=== PATIENT | female | born 1990 | race Caucasian/White ===

== ENCOUNTER 2020-08-21 16:01 | Outpatient (REF) | payer MEDICAID, SELFPAY | END 2020-08-21 16:02 | disposition home or self-care (01) | LOC: HO.LAB 16:01 | PROVIDERS: Visit Provider Internal Medicine | DX: Z20.828 Contact with and (suspected) exposure to other viral communicable diseases (principal) | CPT/HCPCS: C9803; U0003 ==

== ENCOUNTER 2020-09-04 13:53 | Emergency (ER) | payer MEDICAID, SELFPAY ==
[2020-09-04 14:32] VITALS: PULSE 98; RESP 12; TEMP 36.6; O2SAT 98; BMI 40.3
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
== END 2020-09-04 16:47 | disposition home or self-care (01) ==
PROVIDERS: Emergency Provider Emergency Medicine
DX: S61.211A Laceration without foreign body of left index finger without damage to nail, initial encounter (principal); W26.0XXA Contact with knife, initial encounter; Y93.9 Activity, unspecified; Y92.019 Unspecified place in single-family (private) house as the place of occurrence of the external cause; Y99.9 Unspecified external cause status
CPT/HCPCS: 90471; 90715; 99283; 99284

== ENCOUNTER 2023-09-22 11:25 | Emergency (ER) | payer OTHER, MEDICAID, SELFPAY ==
[2023-09-22 12:09] VITALS: BP 140/77; PULSE 86; RESP 20; TEMP 37.1; O2SAT 98; BMI 33.3
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
== END 2023-09-22 14:54 | disposition home or self-care (01) ==
PROVIDERS: Emergency Provider Emergency Medicine
DX: S13.4XXA Sprain of ligaments of cervical spine, initial encounter (principal); S09.90XA Unspecified injury of head, initial encounter; M54.2 Cervicalgia; R51.9 Headache, unspecified; V43.52XA Car driver injured in collision with other type car in traffic accident, initial encounter; Y93.9 Activity, unspecified; Y92.410 Unspecified street and highway as the place of occurrence of the external cause; Y99.9 Unspecified external cause status
CPT/HCPCS: 70450; 72125; 99283; 99284

== ENCOUNTER 2025-07-11 16:29 | Emergency (ER) | payer MEDICAID, SELFPAY ==
--- NOTE | ~2025-07-11 | XR_ITS ---
CLINICAL HISTORY: pain 4 view, chest and right ribs Comparison: None provided Findings: No fractures or dislocations. No acute airspace opacity. No pleural effusion or pneumothorax. Normal heart size. IMPRESSION: 1. No acute right rib fracture identified. 2. No acute cardiopulmonary process. This document has been electronically signed by: Lise Jay DO on 07/11/2025 19:56:35
[2025-07-11 18:55] VITALS: BP 117/56; PULSE 70; RESP 16; TEMP 36.6; O2SAT 100; BMI 31.4
--- NOTE | 2025-07-11 18:56 | ED_ITS ---
[facility] - General Adult General Chief complaint: Abdominal Pain Stated complaint: Fever Body Aches Time Seen by Provider: 07/11/25 18:48 Source: patient Mode of arrival: ambulatory Limitations: no limitations History of Present Illness ED Provider: Dr. Marmolejo [facility] narrative: 35-year-old female presented hospital today for right lower chest pain that is pleuritic in nature has been going on since . No traumatic injuries. No nausea vomiting diarrhea. No right upper quadrant pain. No history of cholecystitis in the past. Patient stated this worse when she takes a deep breath in and out. Related Data Previous Rx's ?Medication ?Instructions ?Recorded acetaminophen 500 mg tablet 500 mg PO Q6H PRN fever or pain 09/22/23 (Tylenol Extra Strength) #14 tabs cyclobenzaprine 5 mg tablet 5 mg PO Q8H PRN pain (scal e score 09/22/23 7-10) 5 days #14 tabs lidocaine 5 % topical patch 1 patch topical DAILY PRN pain #30 09/22/23 (Lidoderm) ea naproxen 500 mg tablet 500 mg PO BID PRN pain 10 da ys #20 09/22/23 tabs lidocaine 5 % topical patch 1 patch topical DAILY #15 ea 07/11/25 prednisone 20 mg tablet 20 mg PO DAILY 7 days #7 tab s 07/11/25 Allergies Allergy/AdvReac Type Severity Reaction Status Date / Time No Known Allergies Allergy Verified 07/11/25 18:58 Review of Systems Review of Systems: Pertinent review of systems as mentioned in HPI. All other system otherwise negative. [facility] Past Medical History Attestation statement: The following information was validated with the patient. [facility] Narrative: Medical history as mentioned in [facility] Social History Social History Advance Directives: No Advance Directives Information Provided: No Do you have a plan to hurt others: No Plan Physical Exam ED Exam Exam: General: Pleasant, no distress, interacting appropriately Head: Normacephalic, atraumatic ENT: oral mucosa moist, neck supple, no tracheal deviation Cardiovascular: regular rate, regular rhythm, no murmurs, rubbing, gallops, right side chest wall tenderness reproducible on exam. Respiratory: CTAB, no wheeze, rales, rhonchi Gastrointestinal: Soft, non distended, non tender, non guarding Neurological: Awake and alert, no facial droop noted Skin: Warm and dry Psychiatric: Appropriate mood and thoughts Vital Signs: Vital Signs - 24 hr 07/11/25 18:55 07/11/25 20:25 Temperature 98 F 98 F Pulse Rate 70 72 Respiratory Rate 16 18 Blood Pressure 117/56 L 118/60 Pulse Oximetry 100 99 Oxygen Delivery Method Room Air Room Air BMI result Body Mass Index 31.4 Course Course Course Narrative: Rapid medical examination performed in triage by Mag Garcia PA-C. Patient is a 35 year old assigned female at presenting to the emergency department with right sided rib pain. Detailed physical exam and review of systems are deferred to the public health sanitarian. Imaging ordered. Patient placed back in the waiting room pending room availability and results. Medical Decision Making Medical Decision Making [facility] Narrative: This is a 35-year-old female presented hospital today for a right-sided pleuritic chest pain. Patient is low risk for PE per PERC rule. I do not think patient has a PE. Patient is likely has costochondritis versus pleurisy. Patient's chest x-ray is clear. Patient does not appear to be in acute distress on evaluation. We will plan to give patient a dose of prednisone here, lidocaine patch, ibuprofen and Tylenol will be given to the patient. We will plan to prescribe patient some lidocaine patch and prednisone as well. Encouraged her to take Tylenol and ibuprofen [id number] for her pain. Work note will be provided. Differential Diagnosis Differential Diagnoses: The differential diagnosis associated with the presentation includes Costochondritis, pleurisy, pneumonia, cholecystitis Lab Data [facility] Lab Attestation statement: I reviewed the patient's lab results. Independent Interpretation I performed an independent interpretation of an: Plain X-Ray Radiology Impression Discussion of test interpretation with radiology: I have reviewed the radiologist's reading. Discharge Plan Discharge Clinical Impression: Acute costochondritis Patient Disposition: Home, Self-Care Instructions: Costochondritis (ED) Prescriptions: New prednisone 20 mg tablet 20 mg PO DAILY 7 Days Qty: 7 0RF lidocaine 5 % adhesive patch,medicated 1 patch topical DAILY Qty: 15 0RF Rx Instructions: leave on most painful area for up to 12 hrs No Action acetaminophen [Tylenol Extra Strength] 500 mg tablet 500 mg PO Q6H PRN (Reason: fever or pain) Qty: 14 0RF lidocaine [Lidoderm] 5 % adhesive patch,medicated 1 patch topical DAILY MDD remove after 12 hours PRN (Reason: pain) Qty: 30 0RF Rx Instructions: leave on most painful area for up to 12 hrs naproxen 500 mg tablet 500 mg PO BID PRN (Reason: pain) 10 Days Qty: 20 0RF cyclobenzaprine 5 mg tablet 5 mg PO Q8H PRN (Reason: pain (scale score 7-10)) 5 Days Qty: 14 0RF Stand Alone Forms: Work/School Release Interventions: LWBS Worksheet Last Done: 07/11/25 17:34 Print Language: Greenlandic
--- OUTSIDE RECORDS SUMMARY | 2025-07-11 19:25 | XMS_ITS | Clinical Summary ---
Author Organization [employer] Address [address] [place] [address] Care Team Providers Care At Risk Specialist Name Role Phone Unavailable Primary Care Provider Unavailabl e Allergies No known active allergies Medications naproxen (Naprosyn) 500 MG tablet TAKE 1 TABLET BY MOUTH TWICE DAILY FOR 10 DAYS NEEDED FOR PAIN 4 Active lidocaine (Lidoderm) 5 % patch APPLY 1 PATCH TOPICALLY TO SKIN, LEAVE ON FOR 12 HOURS AND OFF FOR 12 HOURS DIRECTED. LEAVE ON MOST PAINFUL AREA. 4 Active cyclobenzaprine (Flexeril) 5 MG tablet TAKE 1 TABLET BY MOUTH EVERY 8 HOURS NEEDED FOR PAIN (7 TO 10 ON PAIN SCALE) FOR 5 DAYS 4 Active Acetaminophen Extra Strength 500 MG tablet Take 1 tablet by mouth every 6 (six) hours if needed (pain or fever). 60 tablet 4 Active Active Problems Problem Noted Date Diagnosed Date Acute URI 10/26/2024 Strep throat 02/16/2024 Assessment & Plan (02/16/2024 1:48 PM EDT): -POCT positive for strep, negative flu and COVID -Centor score of 1 -prescription for pencillin V sent to pharmacy. Complete full course. Take medication with food and call the clinic with any adverse reactions -Counseled supportive measures including salt water gargles, cool drinks or ice/popsicles, humidifier, honey for sore throat, fluids, rest. -May alternate Motrin/Tylenol q4h as needed fever. -advised not to share cups or eating utensils, change tooth brush and bedding after 5 days of antibiotic treatment -work note provided to return on Friday -RTC if no improvement in 4 days, increased cough or SOB, fever, or severe headache. -ED precautions reviewed. Caries involving multiple surfaces of tooth 10/17 Periapical abscess without sinus 10/15/2022 Periodontal disease 10/15/2022 Dental calculus 10/15/2022 Vitamin D deficiency 01/16/2018 Social History Tobacco Use Types Packs/Day Years Used Date Smoking Tobacco: Every Day Cigarettes Passive Smoke Exposure: Never Smokeless Tobacco: Never Tobacco Cessation:Ready to Q uit: Not Asked; Counseling Given: Not Answered Comments Unknown Sex and Gender Information Value Date Recorded Sex Assigned at Female 07/15/2022 10:33 AM EDT Legal Sex Female 10:33 AM EDT Gender Identity Female 07/15/2022 10:33 AM EDT Sexual Orientation Straight 07/15/2022 10 :33 AM EDT Last Filed Vital Signs Vital Sign Reading Time Taken Comments Blood Pressure 120/82 10/26/2024 3:19 PM EST Pulse 89 10/26/2024 3:19 PM EST Temperature 36.8 C (98.2 F) 10/26/2024 3:19 PM EST Respiratory Rate 16 10/26/2024 3:19 PM EST Oxygen Saturation 98% 10/26/2024 3:19 PM EST Inhaled Oxygen Concentration - - Weight 82.6 kg (182 lb) 10/26/2024 3:19 PM EST Height - - Body Mass Index - - Plan of Treatment Upcoming Encounters Date Type Department Care Team (Late st Contact Info) Description 07/13/2025 9:30 AM EDT Office Visit [facility] [address] [place] [address] Virginia Lora [address] [place] [address] Health Maintenance Due Date Last Done Comments Depression Screening 1988 HIV Screening 1988 SDOH Screening 1988 Disability Screening 1988 Alcohol/Substance Use Screening 2000 Family Planning (PISQ) 2003 HPV Vaccines (1 - 3-dose series) 2003 Hepatitis C Screening 2006 Hepatitis B Vaccines (1 of 3 - 19+ 3-dose series) 2007 Pneumococcal Vaccine: Pediatrics (0 to 5 Years) and At-Risk Patients (6 to 49) Years (1 of 2 - PCV) 2007 Pap Smear 2009 Cervical Cancer Screening 2018 HPV/Cotest 2018 Dental Prophylaxis 04/15/2023 10/15/2022 Dental Oral Exam 05/30/2024 11/27/2023, 10/15/2022 Dental X-Ray: Bitewings 11/27/2024 11/27/19 24, 10/15/2022 COVID-19 Vaccine (1 - 2023-2 5 season) 2025 Influenza Vaccine (#1) 2025 Tobacco Screening 07/06/2025 07/06/2024 Dental X-Ray: Full Mouth 11/08/2026 024, 10/15/2022 DTaP/Tdap/Td Vaccines (2 - T d or Tdap) 09/04/2030 09/04/2020 Zoster Vaccines (1 of 2) 2038 RSV Patients and Patients Aged 60 years or older (1 - 1-dose 75+ series) 2063 HIB Vaccines Aged Out No longer eligi ble based on patient's age to complete this topic Hepatitis A Vaccines Aged Out No long er eligible based on patient's age to complete this topic IPV Vaccines Aged Out No longer eligi ble based on patient's age to complete this topic Meningococcal B Vaccine Aged Out No l onger eligible based on patient's age to complete this topic Meningococcal Vaccine Aged Out No alfonzo natty eligible based on patient's age to complete this topic RSV under 20 months Aged Out No longe r eligible based on patient's age to complete this topic Rotavirus Vaccines Aged Out No longer eligible based on patient's age to complete this topic Procedures Procedure Name Priority Date/Time Associated Diagnosis Comments BITEWINGS - 4 RADIOGRAPHIC IMAGES Routine 11/27/2023 10:30 AM EDT PERIODIC ORAL EVALUATION - ESTABLISHED PATIENT Routine 11/27/2023 10:30 AM EDT PANORAMIC RADIOGRAPHIC IMAGE Routine 11/07/2023 11:00 AM EST PROPHYLAXIS - ADULT Routine 10/15/2022 1 :00 PM EST from Last 3 Months or Most Recently Relevant to Health Maintenance Insurance [place] [facility] MEDICA[place] STAND ADULT
--- OUTSIDE RECORDS SUMMARY | 2025-07-11 19:25 | XMS_ITS | Encounter Summary ---
Author Organization [employer] [facility] Address [address] [place] [address] [address] [place] [address] Care Team Providers Care Fish Fryer Name Role Phone CatalinoKinsey quintanillarussell AN Primary Care Provider [phone] Encounter Details Date Type Department Care Team (Late st Contact Info) Description 10/28/2022 Abstract [facility] ADULT DENTAL [address] [place] [address] Tomer Wright DDS [address] [place] [address] Social History Tobacco Use Types Packs/Day Years Used Date Smoking Tobacco: Every Day Cigarettes Passive Smoke Exposure: Never Smokeless Tobacco: Never Comments Unknown Sex and Gender Information Value Date Recorded Sex Assigned at Female 07/15/2022 10:33 AM EDT Legal Sex Female 10:33 AM EDT Gender Identity Female 07/15/2022 10:33 AM EDT Sexual Orientation Straight 07/15/2022 10 :33 AM EDT COVID-19 Exposure Response Date Recorded In the last 10 days, have yo u been in contact with someone who was confirmed or suspected to have Coronavirus/COVID-19? No / Unsure 10/15/2022 12:54 PM EST documented as of this encounter Plan of Treatment Upcoming Encounters Date Type Department Care Team (Late st Contact Info) Description 07/13/2025 9:30 AM EDT Office Visit [facility] ADULT DENTAL [address] [place] [address] Lora Coleman [address] [place] [address] documented as of this encounter Visit Diagnoses Not on filedocumented in this encounter Care Teams Fish Fryer Relationship Specialty Start Date End Date Wendie Elmore FNP [address] [place] [address] PCP - General Family Medicine 06/20/22 03/16/24 documented as of this encounter
--- OUTSIDE RECORDS SUMMARY | 2025-07-11 19:25 | XMS_ITS | Encounter Summary ---
Author Organization [employer] [facility] Address [address] [place] [address] 7 [place] [address] Care Team Providers Care Floral Department Specialist Name Role Phone CatalinoWendie quintanilla NATALIYA Primary Care Provider [phone] Encounter Details Date Type Department Care Team (Late st Contact Info) Description 11/11/2022 Abstract [facility] ADULT DENTAL [address] [place] [address] Tomer Wright DDS [address] [place] [address] Social History Tobacco Use Types Packs/Day Years [...] suspected to have Coronavirus/COVID-19? No / Unsure 11/11/2022 3:25 PM EST documented as of this encounter Plan of Treatment Upcoming Encounters Date Type Department Care Team (Late st Contact Info) Description 07/13/2025 9:30 AM EDT Office Visit [facility] ADULT DENTAL [address] [place] [address] Lora Coleman [address] [place] [address] documented as of this encounter Visit Diagnoses Not on filedocumented in this encounter Care Teams Floral Department Specialist Relationship Specialty Start Date End Date Wendie Elmore FNP [address] [place] [address] PCP - General Family Medicine 06/20/22 03/16/24 documented as of this encounter
--- OUTSIDE RECORDS SUMMARY | 2025-07-11 19:25 | XMS_ITS | Encounter Summary ---
Author Organization [employer] [facility] Address [address] [place] [address] [address] [place] [address] Care Team Providers Care Content Analyst Name Role Phone CatalinoWendie quintanilla NATALIYA Primary Care Provider [phone] Encounter Details Date Type Department Care Team (Late st Contact Info) Description 11/15/2022 Abstract [facility] ADULT DENTAL [address] [place] [address] Tomer Wright DDS [address] [place] [address] Social History Tobacco Use Types Packs/Day Years [...] suspected to have Coronavirus/COVID-19? No / Unsure 11/18/2022 1:39 PM EST documented as of this encounter Plan of Treatment Upcoming Encounters Date Type Department Care Team (Late st Contact Info) Description 07/13/2025 9:30 AM EDT Office Visit [facility] ADULT DENTAL [address] [place] [address] Lora Coleman [address] [place] [address] documented as of this encounter Visit Diagnoses Not on filedocumented in this encounter Care Teams Content Analyst Relationship Specialty Start Date End Date Wendie Elmore FNP [address] [place] [address] PCP - General Family Medicine 06/20/22 03/16/24 documented as of this encounter
--- OUTSIDE RECORDS SUMMARY | 2025-07-11 19:25 | XMS_ITS | Encounter Summary ---
Author Organization [employer] [facility] Address [address] [place] [address] [address] [place] [address] Care Team Providers Care Clinical Neuropsychologist Name Role Phone Wendie Elmore NATALIYA Primary Care Provider [phone] Encounter Details Date Type Department Care Team (Late st Contact Info) Description 11/15/2022 Abstract [facility] ADULT DENTAL [address] [place] [address] Jerica Tristan, KENNETH [address] [place] [address] Social History Tobacco Use Types Packs/Day Years [...] Description 07/13/2025 9:30 AM EDT Office Visit [facility] ADULT DENTAL [address] [place] [address] Lora Coleman [address] [place] [address] documented as of this encounter Visit Diagnoses Not on filedocumented in this encounter Care Teams Clinical Neuropsychologist Relationship Specialty Start Date End Date Wendie Elmore FNP [address] [place] [address] PCP - General Family Medicine 06/20/22 03/16/24 documented as of this encounter
[2025-07-11 20:25] VITALS: BP 118/60; PULSE 72; RESP 18; TEMP 36.6; O2SAT 99
[2025-07-11] MEDS: Lidocaine 4 % Patch ADH..PATCH 1 PATCH TRANSDERMA (21:46)
[2025-07-11 21:50] VITALS: BP 118/60; PULSE 72; RESP 18; TEMP 36.6; O2SAT 99
== END 2025-07-11 21:52 | disposition home or self-care (01) ==
PROVIDERS: Emergency Provider Student in an Organized Health Care Education/Training Program
DX: M94.0 Chondrocostal junction syndrome [Tietze] (principal); R07.89 Other chest pain; R50.9 Fever, unspecified
CPT/HCPCS: 71101; 99283; 99284

== ENCOUNTER → 2025-07-11 18:57 | Outpatient (BNV) | payer MEDICAID, SELFPAY | PROVIDERS: Visit Provider Radiology Diagnostic Radiology | DX: R52 Pain, unspecified (principal) | CPT/HCPCS: 71101 ==

== ENCOUNTER 2025-08-24 10:08 | Outpatient (REF) | payer MEDICAID, SELFPAY ==
[2025-08-24 11:26] LABS: MANUAL DIFF FLAG NO
[2025-08-24 11:29] LABS: Hematocrit 39.6 % (37.0-47.0); Hemoglobin 13.0 g/dl (12.0-16.0); Imm Gran Abs Auto 0.01 X10*3/uL (0.00-0.03); Imm Gran Pct Auto 0.1 % (0.0-0.4); Lymphocytes Absolute Auto 1.7 X10*3/uL (1.2-4.9); Mean Corpuscular HGB Conc 32.8 g/dl (31.0-35.0); Mean Corpuscular Hemoglobin 31.5 pg (27.0-33.0); Mean Corpuscular Volume 95.9 fL (80.0-98.0); NRBC Abs Auto 0.000 X10*3/uL (0.0-0.012); NRBC Pct Auto 0.0 /100WBC (0.0-0.2); Platelet Count 471 X10*3/uL (160-400); Red Blood Count 4.13 X10*6/uL (4.20-5.50); White Blood Count 7.0 X10*3/uL (4.8-10.8)
[2025-08-24 12:27] LABS: Alanine Aminotransferase 18 U/L (0-31); Albumin Level 4.3 g/dL (3.5-5.0); Alkaline Phosphatase 78 U/L (39-117); Anion Gap 7 (12-20); Aspartate Amino Transferase 19 U/L (5-31); Blood Urea Nitrogen 18 mg/dL (9-16); Calcium 8.8 mg/dL (8.4-10.2); Carbon Dioxide 27 mmol/L (22-29); Chloride 110 mmol/L (96-108); Cholesterol 136 mg/dL (<200); Estimated Glomerular Filt Rate > 60; HDL Cholesterol 56 mg/dL (>40); Potassium 4.4 mmol/L (3.3-5.1); Sodium 140 mmol/L (135-145); Total Protein 7.0 g/dL (6.5-8.0); Triglycerides 38 mg/dL (<150)
[2025-08-24 12:50] LABS: Thyroid Stimulating Hormone 1.22 uIU/mL (0.32-4.0)
[2025-08-24 12:57] LABS: HBsAGNum1 0.29 S/CO (0.00-0.99); HIV Num 1 0.07 S/CO (0.00-0.99); Hepatitis B Surface Antigen Negative (Negative); ~HepC Num1 0.13 S/CO (0.00-0.79); ~Hepatitis C Antibody Nonreactive (Nonreactive)
[2025-08-24 13:30] LABS: CT PCR Urine NOT DETECTED (Not Detect.); NG PCR Urine NOT DETECTED (Not Detect.)
== END 2025-08-24 10:09 ==
LOC: HO.HHCL 10:08
PROVIDERS: PCP Nurse Practitioner Family; Visit Provider Nurse Practitioner Family
DX: Z00.00 Encounter for general adult medical examination without abnormal findings (principal); Z20.2 Contact with and (suspected) exposure to infections with a predominantly sexual mode of transmission; Z11.4 Encounter for screening for human immunodeficiency virus [HIV]; Z11.59 Encounter for screening for other viral diseases
CPT/HCPCS: 80053; 80061; 83036; 84443; 85025; 86803; 87340; 87389; 87491; 87591